=== PATIENT | female | born 1980 | race Caucasian/White ===

== ENCOUNTER 2018-01-20 03:43 | Emergency (ER) | payer OTHER ==
[2018-01-20] MEDS ORDERED: NITROFURANTOIN 100MG PREPACK#2 BTL TAKEHOME ONE (04:39)
[2018-01-20] MEDS ORDERED: PHENAZOPYRIDINE HCL 200 MG TAB PO ONE (04:42)
--- NOTE | 2018-01-20 04:43 | EDPHY ---
H & P Stated Complaint: "I have a fistula", found "onion in her pee", abd cramping Time Seen by Provider: 01/20/18 04:08 HPI/ROS: Chief Complaint: Pelvic discomfort, urinary symptoms HPI: 38-year-old woman passed some tissue in her urine and is concerned that she may have passed some food from her bladder and that she might have a fistula. She has been having some low pelvic pain and cramping for the last week. Last menstrual. Was 2 weeks ago and normal. No vaginal discharge. No history of sexually transmitted infections in the past. She has not had any abdominal or pelvic surgeries. No fevers or chills. No nausea or vomiting. No diarrhea or constipation. ROS: 10 systems were reviewed and were negative except those elements noted in the HPI. PMH: Denies Social History: No smoking, no alcohol, no recreational drug use Family History: non-contributory Physical Exam: Gen: Awake, Alert, No Distress HEENT: Nose: no rhinorrhea Eyes: PERRLA, EOMI Mouth: Moist mucosa Neck: Supple, no JVD Chest: nontender, lungs clear to auscultation Heart: S1, S2 normal, no murmur Abd: Soft, moderate suprapubic tenderness to palpation, no guarding Back: no CVA tenderness, no midline tenderness Ext: no edema, non-tender Skin: no rash Neuro: CN II-XII intact, Sensation grossly intact, Strength 5/5 in bilateral upper and lower extremities - Personal History LMP (Females 10-55): 8-14 Days Ago Current Tetanus Diphtheria and Acellular Pertussis (TDAP): No - Medical/Surgical History Hx Asthma: Yes Hx Chronic Respiratory Disease: No Hx Diabetes: No Hx Cardiac Disease: No Hx Renal Disease: No Hx Cirrhosis: No Hx Alcoholism: No Hx HIV/AIDS: No Hx Splenectomy or Spleen Trauma: No Other PMH: Hypotension - Social History Smoking Status: Never smoked Constitutional: Initial Vital Signs Temperature (C) 36.3 C 01/20/18 03:47 Heart Rate 82 01/20/18 03:47 Respiratory Rate 17 01/20/18 03:47 Blood Pressure 127/54 H 01/20/18 03:47 O2 Sat (%) 96 01/20/18 03:47 O2 Delivery Mode Room Air Allergies/Adverse Reactions: No Known Allergies Allergy (Unverified 01/20/18 03:47) Home Medications: Medication Instructions Recorded Fluconazole [Diflucan (*)] 150 mg PO ONCE #1 tab 01/20/18 Nitrofurantoin Monohyd/M-Cryst 100 mg PO BID #8 capsule 01/20/18 [Macrobid 100 mg Capsule] Phenazopyridine HCl [Pyridium] 200 mg PO TID #6 tab 01/20/18 Medical Decision Making ED Course/Re-evaluation: 38-year-old woman with low pelvic pain and urinalysis consistent with UTI. Abdomen is soft and benign with some mild suprapubic tenderness. No CVA tenderness. She has not had any pelvic surgeries in his not have any risk factors for a fistula. She otherwise does not have any concerning findings on examination. Patient is declining pelvic exam at this time. Will treat her for urinary tract infection. She will follow up with her OBGYN in [place]. - Data Points Laboratory Results: 01/20/18 04:10 Urine Color CHERIE Urine Appearance MODERATELY TURBID Urine pH 5.0 (5.0-7.5) Ur Specific [place] 1.032 H (1.002-1.030) Urine Protein 1+ H (NEGATIVE) Urine Ketones TRACE H (NEGATIVE) Urine Blood 1+ H (NEGATIVE) Urine Nitrate NEGATIVE (NEGATIVE) Urine Bilirubin NEGATIVE (NEGATIVE) Urine Urobilinogen 2.0 EU H EU (0.2-1.0) Ur Leukocyte Esterase 2+ H (NEGATIVE) Urine RBC 15-25 /hpf H /hpf (0-3) Urine WBC 50-182 /hpf H /hpf (0-3) Ur Epithelial Cells 4+ /lpf H /lpf (NONE-1+) Calcium Oxalate Crystal PRESENT /hpf /hpf (NONE-1+) Urine Bacteria TRACE /hpf H /hpf (NONE SEEN) Urine Mucus 4+ /lpf H /lpf (NONE-1+) Urine Glucose NEGATIVE (NEGATIVE) Medications Given: Discontinued Medications Nitrofurantoin (Macrobid 100mg Prepack#2) 1 btl TAKEHOME EDNOW ONE PRN Reason: Protocol Stop: 01/20/18 04:40 Last Admin: 01/20/18 04:45 Dose: 1 btl Phenazopyridine HCl (Pyridium) 200 mg PO EDNOW ONE Stop: 01/20/18 04:43 Last Admin: 01/20/18 04:45 Dose: 200 mg Departure - Departure Disposition: Home, Routine, Self-Care Clinical Impression: Urinary tract infection Condition: Good Instructions: Urinary Tract Infection in Women (ED) Additional Instructions: Please take your full course of antibiotics. Follow up with her OBGYN in 3-4 days for further evaluation. Return to the emergency department for increasing pain, nausea vomiting, fevers , chills, or any other concerns. Referrals: FAUSTO BENNETT [Other] - As per Instructions Prescriptions: Fluconazole [Diflucan (*)] 150 mg PO ONCE #1 tab Nitrofurantoin Monohyd/M-Cryst [Macrobid 100 mg Capsule] 100 mg PO BID #8 capsule Phenazopyridine HCl [Pyridium] 200 mg PO TID #6 tab
[2018-01-20 05:02] VITALS: BP 122/56
== END 2018-01-20 05:02 | disposition home or self-care (01) ==
DX: N39.0 Urinary tract infection, site not specified (principal)